=== PATIENT | female | born 1975 | race Caucasian/White ===

== ENCOUNTER 2023-02-19 18:01 | Emergency (ER) | payer BC, MEDICAID, SELFPAY ==
[2023-02-19 18:04] VITALS: BP 171/95; PULSE 118; RESP 18; TEMP 37.2; O2SAT 99
--- NOTE | 2023-02-19 18:25 | RAD_ITS ---
EXAM: XR RIGHT FOOT COMPLETE, 3 OR MORE VIEWS CLINICAL INDICATION: fall TECHNIQUE: Frontal, lateral and oblique views of the right foot. COMPARISON: No relevant prior studies available. FINDINGS: BONES/JOINTS: Fracture -tip of the fibula. There is a calcaneal spur. Preservation of the joint space. No sclerotic or destructive changes observed. SOFT TISSUES: There is non specific soft tissue swelling. No radiopaque foreign body. RAD/Foot min 3 Views IMPRESSION: 1. Fracture -tip of the fibula. 2. There is non specific soft tissue swelling. Electronically Signed: Baron Mulligan MD at 18:57 EDT ,
--- NOTE | 2023-02-19 18:35 | RAD_ITS ---
STUDY: XR Ankle Min 3 Views REASON FOR EXAM: Female, 47 years old. ANKLE PAIN TECHNIQUE: XR Ankle Min 3 Views RIGHT COMPARISON: None. FINDINGS: Normal visualized distal tibia. Normal medial and lateral malleoli. Normal tibiotalar articulation and ankle mortise. The visualized subtalar, talonavicular, calcaneocuboid and tarsal articulations are normal. There is a plantar calcaneal spur. There is soft tissue swelling around the ankle. Fracture tip of the fibula. RAD/Ankle min 3 Views IMPRESSION: There is soft tissue swelling. Fracture -tip of the fibula. Electronically Signed: Baron Mulligan MD at 18:56 EDT ,
--- NOTE | 2023-02-19 18:53 | EX.ED.DYSGE1 ---
HPI <WADE Cleary - Last Filed: 02/19/23 19:31> History of Present Illness Chief Complaint: Lower Extremity Injury Narrative Narrative: Patient is a 47-year-old female with no significant medical history presents to the emergency department after injuring her right ankle. Patient was hiking today, she rolled her right ankle. She then had a walk 2 miles back to her car. She has significant swelling and pain she is here for evaluation. PFSH <WADE Cleary - Last Filed: 02/19/23 19:31> PFS Medical History no medical history Home Medications oxycodone-acetaminophen 5 mg-325 mg tablet (Percocet) 1 tab PO Q8H PRN pain 3 days #10 tabs 02/19/23 [Rx Last Taken Unknown] Allergy/AdvReac Type Severity Reaction Status Date / Time No Known Allergies Allergy Verified 02/19/23 18:09 Surgical History no surgical history Social History Smoking Status: Never smoker ROS <WADE Cleary - Last Filed: 02/19/23 19:31> ROS ED ROS Narrative Constitutional: Negative for fever, chills, weight loss, weakness Eyes: Negative for vision loss, vision change, double vision ENT: Negative for any sore throat, ear pain, congestion Cardiovascular: Negative for any chest pain, tightness, palpitations Respiratory: Negative for any cough, sputum production, hemoptysis, dyspnea, dyspnea on exertion, orthopnea Gastrointestinal: Negative for any abdominal pain, nausea, vomiting, diarrhea, constipation, blood in stool, blood in vomit : Negative for any urinary frequency, dysuria, retention, blood in urine Muscle skeletal: Negative for any muscle joint pain, stiffness, myalgias, arthralgias, neck pain, back pain. Positive for right ankle injury. Right ankle swelling. Neurological: Negative for any headache, syncope, numbness or tingling, dizziness Skin: Negative for any rashes, lumps, itching, abrasions, lacerations Psychiatric: Negative for any depression, anxiety, stress, suicidal ideation, homicidal ideation Hematologic: Negative for any easy bruising, excessive bruising, easy bleeding Allergies: Negative for any eczema, hives, rash EXAM <WADE Cleary Last Filed: 02/19/23 19:31> Physical Exam Narrative Exam Narrative: Vital signs reviewed. Extremities: Patient has significant ecchymosis, edema to the right lateral malleolus. Patient has pain along the fifth metatarsal. Patient is +2 pedal pulse. Patient has significant pain with flexion of the right foot. Neuro: Cranial nerves II through XII intact, no focal neurological deficits. Skin: Clean dry and intact with no rash, purpura, petechiae, vesicles or pustules. Backs/flank: No CVA tenderness, no midline spinal tenderness, no deformity. Psych: Normal mood and affect. No SI, HI or acute psychosis. Const Vital Signs: 02/19/23 18:04 Temperature 99 F Temperature Source Temporal Pulse Rate 118 H Respiratory Rate 18 Blood Pressure 171/95 H Blood Pressure Mean 120 Pulse Ox 99 Oxygen Delivery Method Room Air <Dr. Klaus Morrow DO - Last Filed: 02/19/23 19:30> Physical Exam Const Vital Signs: 02/19/23 18:04 Temperature 99 F Temperature Source Temporal Pulse Rate 118 H Respiratory Rate 18 Blood Pressure 171/95 H Blood Pressure Mean 120 Pulse Ox 99 Oxygen Delivery Method Room Air MDM <WADE Cleary - Last Filed: 02/19/23 19:31> MDM Radiography Diagnostic Testing: Clinical Impression(s) from Imaging Studies Foot X-Ray 02/19/23 18:25 IMPRESSION: 1. Fracture -tip of the fibula. 2. There is non specific soft tissue swelling. Electronically Signed: Baron Mulligan MD at 18:57 EDT , Ankle X-Ray 02/19/23 18:35 IMPRESSION: There is soft tissue swelling. Fracture -tip of the fibula. Electronically Signed: Baron Mulligan MD at 18:56 EDT , Treatment and Re-Evaluation :: Patient appears generally well, patient appears nontoxic, vital signs are stable. Presenting to the emergency department with right ankle pain after rolling her ankle while hiking. Patient received 3 view x-rays of the right ankle, right foot. All radiologic examinations were read, reviewed by the emergency department attending. From these reads, a plan of care will be put in place. Given Percocet here. Patient's x-rays of the right foot shows nonspecific dorsal swelling. X-ray of the right ankle shows a fracture tip of the fibula. Patient replaced in a walking boot, crutches with instruction. Patient given Percocet for home, she also use ibuprofen as needed. She is instructed to ice and elevate. She will follow-up with Dr. Flores orthopedics, all questions are answered, patient was given strict return precaution. <Dr. Klaus Morrow, DO - Last Filed: 02/19/23 19:30> MDM Radiography Diagnostic Testing: Clinical Impression(s) from Imaging Studies Foot X-Ray 02/19/23 18:25 IMPRESSION: 1. Fracture -tip of the fibula. 2. There is non specific soft tissue swelling. Electronically Signed: Baron Mulligan MD at 18:57 EDT , Ankle X-Ray 02/19/23 18:35 IMPRESSION: There is soft tissue swelling. Fracture -tip of the fibula. Electronically Signed: Baron Mulligan MD at 18:56 EDT , Treatment and Re-Evaluation :: Patient appears generally well, patient appears nontoxic, vital signs are stable. Presenting to the emergency department with right ankle pain after rolling her ankle while hiking. Patient received 3 view x-rays of the right ankle, right foot. All radiologic examinations were read, reviewed by the emergency department attending. From these reads, a plan of care will be put in place. Given Percocet here. Patient's x-rays of the right foot shows nonspecific dorsal swelling. X-ray of the right ankle shows a fracture tip of the fibula. Patient replaced in a walking boot, crutches with instruction. Patient given Percocet for home, she also use ibuprofen as needed. She is instructed to ice and elevate. She will follow-up with Dr. Flores orthopedics, all questions are answered, patient was given strict return precaution. I have personally performed a face to face assessment of the patient and have reviewed the VIOLET Note. I performed a substantive portion of the visit including all aspects of the following. My mora findings include: History is patient sustained inversion injury while [place] She notes swelling and pain laterally. She denies any proximal leg pain. Exam is swelling ecchymosis tenderness over the lateral malleolus. No fifth metatarsal pain. No fibular head pain. No posterior or medial malleoli or pain and swelling. Medical Decison Making interpretation of the plain films of the foot and ankle is an acute avulsion fracture of the lateral malleolus. Soft tissue swelling noted. Patient will be placed in a walking boot given crutches. She will follow-up with orthopedics Discharge Plan Triage Chief Complaint: Lower Extremity Injury ED Midlevel Provider: Weston Sotomayor ED Provider: Klaus Morrow Dx/Rx/DC Orders Clinical Impression: Contusion of foot, Closed fibular fracture Instructions: Bruises (Contusions), ED Contusion, Lower Extremity, ED Fracture, Lower Extremity Prescriptions: New oxycodone-acetaminophen [Percocet] 5-325 mg tablet 1 tab PO Q8H PRN (Reason: pain) 3 Days Qty: 10 0RF Primary Care Provider: Care Physician,No Primary Referrals: Micheal Flores DO [Med Staff - Active Staff] - Care Physician,No Primary [Primary Care Provider] - Activity Restrictions/Additional Instructions: Please follow-up, ice and elevate. Use the oxycodone however use the ibuprofen as well. Disposition Disposition: Home, Self Care
[2023-02-19 19:02] VITALS: BMI 27.4
[2023-02-19] MEDS: Oxycodone/Apap 5/325 Tablet PO (19:21)
[2023-02-19 20:10] VITALS: BP 139/76; PULSE 65; RESP 18; O2SAT 98
== END 2023-02-19 20:38 | disposition home or self-care (01) ==
PROVIDERS: Emergency Provider Emergency Medicine; Visit Provider Emergency Medicine
DX: S82.401A Unspecified fracture of shaft of right fibula, initial encounter for closed fracture (principal); X58.XXXA Exposure to other specified factors, initial encounter; Y93.01 Activity, walking, marching and hiking; S90.31XA Contusion of right foot, initial encounter
CPT/HCPCS: 73610; 73630; 99284